=== PATIENT | male | born 1985 | race Two or more races ===

== ENCOUNTER 2024-06-18 19:44 | Emergency (ER) | payer OTHER, SELFPAY ==
[2024-06-18 19:47] VITALS: BP 114/77; PULSE 60; RESP 17; TEMP 36.4; O2SAT 98; BMI 28.4
--- NOTE | 2024-06-18 20:05 | ED_ITS ---
HPI - General Adult General Chief complaint: Ear Problems Stated complaint: L ear pain/ headache Time Seen by Provider: 06/18/24 22:31 Source: patient Mode of arrival: ambulatory Limitations: no limitations History of Present Illness ED Provider: JOHN HPI narrative: 38 yo male with no sig PMH here with one day of L ear pain and feeling dizzy. He notes it hurts on that side of the head. No recent risk factors for infection of ear. He has decreased hearing out of L ear. 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 Onset (ago): day(s) (1) Location: head Radiation: non-radiation Severity: moderate Quality: aching Pain Consistency: constant Relieving factors: medication Exacerbating factors: other (touching ear) Associated symptoms: headaches Treatments prior to arrival: other (tylenol) Related Data Previous Rx's ?Medication ?Instructions ?Recorded amoxicillin 875 mg-potassium 1 tab PO BID #14 tabs 06/19/24 clavulanate 125 mg tablet Allergies Allergy/AdvReac Type Severity Reaction Status Date / Time No Known Allergies Allergy Verified 06/18/24 19:50 Review of Systems Review of Systems: Constitutional : No Fever, No Chills, No Fatigue ENT/Mouth : pos sore throat, No Rhinorrhea, pos ear pain Eyes: No Eye Pain, No Swelling, No Redness Cardiovascular : No Chest Pain, No SOB, No Dyspnea on Exertion Respiratory : No Cough, No Sputum Gastrointestinal : No Nausea, No Vomiting, No Diarrhea, No abdominal Pain Genitourinary : No Dysuria, No Urinary Frequency, No Hematuria, Musculoskeletal : No joint pain, No Myalgias, No Joint Swelling Skin : No Skin Lesions, No rash Neuro : No Weakness, No Numbness, No Dizziness, positive Headache Psych : No Anxiety/Panic, No Depression Heme/Lymph: No Bruising, No Bleeding,No Lymphadenopathy Endocrine : No Polyuria, No Polydipsia All other systems reviewed and are negative [facility] Past Medical History Attestation statement: The following information was validated with the patient. Medical History No pertinent past medical history Social History Social History (Updated 06/18/24 @ 23:06 by Deann Andersen DO) Patient Tobacco Use Status: Never used Tobacco Advance Directives: No Advance Directives Information Provided: No Do you have a plan to hurt others: No Plan Physical Exam ED Vital Signs: Vital Signs - 24 hr 06/18/24 19:47 06/18/24 22:32 Temperature 97.5 F 97.8 F Pulse Rate 60 64 Respiratory Rate 17 18 Blood Pressure 114/77 118/76 Pulse Oximetry 98 98 Oxygen Delivery Method Room Air Room Air BMI result Body Mass Index 28.4 Appearance: Alert. Oriented X3. No acute distress. Eyes: Pupils equal, round and reactive to light. ENT: Pharynx mild erythema, no mastoid ttp, no exudates in the throat, L TM covered in hard wax, no lymphadenopathy in the neck or preuricular area felt Neck: Normal inspection. NeckL supple. CVS: Normal heart rate and rhythm. Pulses normal. Respiratory: No respiratory distress. Breath sounds normal. Abdomen: Soft and nontender. Skin: Skin warm and dry. Normal skin color. Normal skin turgor. Extremities: No lower extremity edema. No calf ttp Neuro: Oriented X 3. No motor deficit. No sensory deficit. Course Course Course Narrative: RME performed by Ashley Pardo PA-C. Patient is a 38 year old assigned male at presenting to the emergency department with left ear pain. Detailed physical exam and review of systems are deferred to the retread operator. Patient placed back in the waiting room pending room availability. Reevaluation(s) Reevaluation #1: after irrigation has AOM of L ear, R TM and ear canal normal Medications Administered Discontinued Medications Generic Name Dose Route Start Last Admin Trade Name Freq PRN Reason Stop Dose Admin Docusate Sodium 100 mg 06/18/24 22:41 06/18/24 23:04 Docusate Sodium 100 Mg/10 Ml Liquid PO 06/18/24 22:42 100 mg ONCE ONE Administration Docusate Sodium 100 mg 06/18/24 23:13 06/18/24 23:17 Docusate Sodium 100 Mg/10 Ml Liquid PO 06/18/24 23:14 100 mg ONCE ONE Administration Procedures Ear Wax Removal Left Ear: Cerumenolytic Used: Colace Results: Re-examined: cerumen removed completely TM Examination: other (has AOM but normal canal and no perforation - effusion, erythema, bulging) Ear Canal Exam: atraumatic Patient Tolerated Procedure: well and no complications Complications: no problems Technique: ear canal irrigated Additional Comments: removed after one 10cc warm water irrigation Medical Decision Making Medical Decision Making MDM Narrative: 38 yo male with no sig PMH here with c/o L ear pain no signs of mastoid ttp no lymphadenopathy the L ear has TM impaction will place colace and irrigate. No signs of deeper space infection. Suspect wax impaction, AOM. Doubt mastoiditis. He is NV intact Differential Diagnosis Differential Diagnoses: The differential diagnosis associated with the presentation includes wax impaction, AOM. Admission/Observation Consideration of admission/observation: Escalation of care including admission/observation considered not toxic doubt deeper infection stable for DC Independent Historian Clinical information obtained from an independent historian. History obtained from or confirmed by: Spouse Prescription Management I considered prescription management with: Antibiotic Discharge Plan Discharge Clinical Impression: Otitis media Qualifiers: Otitis media type: suppurative Chronicity: acute Laterality: left Recurrence: non-recurrent Spontaneous tympanic membrane rupture: without spontaneous rupture Qualified Code(s): H66.002 - Acute suppurative otitis media without spontaneous rupture of ear drum, left ear Cerumen impaction Qualifiers: Laterality: left Qualified Code(s): H61.22 - Impacted cerumen, left ear Patient Disposition: Home, Self-Care Instructions: Ear Infection (ED) Additional Instructions: return for any fevers, severe pain, swelling, no sig improvement in 24 to 48 hours or any other concerns. On amoxicillin-clavulanate, softer bowel movements are to be expected. Call your provider if you move your bowels more than 4 times a day, your bowel movements are almost all liquid, or you get a rash.? Prescriptions: New amoxicillin-pot clavulanate 875-125 mg tablet 1 tab PO BID Qty: 14 0RF Print Language: Yakut
[2024-06-18 22:32] VITALS: BP 118/76; PULSE 64; RESP 18; TEMP 36.6; O2SAT 98
[2024-06-18] MEDS: Docusate Sodium 100 MG/10 ML LIQUID PO ×2 (23:04→23:17)
[2024-06-19] MEDS: Ibuprofen 600 MG TABLET PO (00:18)
[2024-06-19] MEDS: Amoxicillin/Potassium Clav 875 MG TABLET PO (00:18)
--- NOTE | 2024-06-19 00:23 | PC.NURSE ---
Took over care at 23:00 from Virgen Barry, medicated per sep, reviewed discharge instructions with pt. pt verbalized understanding, no sign of distress upon discharge.
[2024-06-19 00:25] VITALS: BP 132/81; PULSE 64; RESP 16; TEMP 36.3; O2SAT 96
== END 2024-06-19 00:26 | disposition home or self-care (01) ==
PROVIDERS: Emergency Provider Emergency Medicine
DX: H66.002 Acute suppurative otitis media without spontaneous rupture of ear drum, left ear (principal); H61.22 Impacted cerumen, left ear; H92.02 Otalgia, left ear; R42 Dizziness and giddiness
CPT/HCPCS: 99283; 99284

== ENCOUNTER 2025-04-16 15:14 | Outpatient (AMB) | payer OTHER, SELFPAY ==
--- NOTE | 2025-04-16 15:25 | A.OFFPC_ITS ---
Vital Signs 04/16/25 15:26 Height 5 ft 6 in Weight 165 lb 2 oz BMI 26.6 BP 90/60 Blood Pressure Location Lt brachial Position Sitting Respiration 18 Pulse 64 Pulse Source Pulse Oximeter Temp 96.4 F L Temp Source Temporal Artery Scan Pulse Oximetry (%) 95 Oxygen Delivery Method Room Air Intake Visit Reasons: establish care Billing Coordinator Required: No Accompanied by: Self / Same As Patient Allergies No Known Allergies Allergy (Verified 04/16/25 15:47) Medication List - Last Reconciled 04/16/25 by Marissa Hoffman MD No Known Home Meds Tobacco use date assessed: 04/16/25 Dental Screening Dental Screen Date: 04/16/25 Did you have a dental visit in the last 12 months?: Yes Did you have a dental problem in the last 6 months where you did not have access to dental care?: No Was dental information given to patient?: Patient has dentist HPI HPI Comments History of Present Illness Details The patient is a 39-year-old male presenting with concerns related to pulmonary embolism after covid, sleep apnea, and mental health issues. The patient has a history of pulmonary embolism, for which he was treated with blood thinners. He completed the treatment and is no longer on anticoagulation therapy. The patient reports having sleep apnea and uses a CPAP machine. However, he mentioned that the mask is broken, which affects his usage of the machine. The patient also experiences mild depression and anxiety. He describes episodes of feeling overwhelmed, particularly in the afternoon, which sometimes require him to take a short nap. He has a history of smoking but currently does not smoke and only drinks alcohol on special occasions. 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 1. Little interest or pleasure in doing things: several days 2. Feeling down, depressed, or hopeless: several days 3. Trouble falling or staying asleep, or sleeping too much: several days 4. Feeling tired or having little energy: more than half the days 5. Poor appetite or overeating: not at all 6. Feeling bad about yourself - or that you are a failure or have let yourself or your family down: more than half the days 7. Trouble concentrating on things, such as reading the newspaper or watching television: more than half the days 8. Moving or speaking so slowly that other people could have noticed. Or the opposite - being so fidgety or restless that you have been moving around a lot more than usual: several days 9. Thoughts that you would be better off or of hurting yourself in some way: not at all Total score: 10 Depression Screening Interpretation: Positive Depression Screening Follow-up: Existing condition and Follow-up Visit Requested Depression Screening Done: Yes [id number] - PHQ-9 Billing: Yes Source: Developed by Drs. Deshaun Epstein, Clarisa Cabral, Edmundo Bernal and colleagues, with an educational rosi from [employer]. Thrive Questionnaire Date Thrive assessed: 04/16/25 I am a: Patient What is your living situation today?: I have a steady place to live Within the past 12 months, did the food you bought not last and you didn't have the money to get more?: Never true Within the past 12 months, did you worry whether your food would run out before you got money to buy more?: Never true Do you have trouble paying for medicines?: No Do you have trouble getting transportation to medical appointments?: No Do you have trouble paying your heating and electricity bill?: No Do you have trouble taking care of your child, family member or friend?: No Do you have trouble with day-to-day activities such as bathing, preparing meals, shopping, managing finances, etc.?: No Are you currently unemployed and looking for a job?: No Are you interested in more education?: Yes Please select the resources that you would like help with: Food and Paying for medicine Currently or been in a relationship where the following occur: No concerns reported THRIVE Score: 0 AUDIT C Alcohol Use Questionnaire (AUDIT-C) 1. How often do you have a drink containing alcohol?: Monthly or less 2. How many drinks containing alcohol do you have on a typical day when you are drinking?: 3 or 4 3. How often do you have six or more drinks on one occasion?: Less than monthly Total Score: 3 Score Reviewed/Action Taken: No VIRGINIA-7 AMB Questionnaire VIRGINIA-7 Date VIRGINIA - 7 assessed: 04/16/25 Feeling nervous, anxious, or on edge: 1 = Several days Not being able to stop or control worryin = Several days Worrying too much about different things: 1 = Several days Trouble relaxin = Several days Being so restless that it is hard to sit still: 1 = Several days Becoming easily annoyed or irritable: 1 = Several days Feeling afraid as if something awful might happen: 0 = Not at all Total VIRGINIA-7 score (0-4 normal; 5-9 mild; 10-14 moderate; 15-21 severe): 6 Source: Developed by Drs. Deshaun Epstein, Clarisa Cabral, Edmundo Bernal and colleagues, with an educational rosi from [employer]. VIRGINIA-7 Assessment Billing VIRGINIA-7 Assessment Tool: VIRGINIA-7 Assessment 57479 Review of Systems Const All systems reviewed & are unremarkable except as noted in HPI and below Card Denies chest pain at rest, Denies chest pain with activity, Denies edema, Denies irregular heart rhythm, Denies claudication, Denies dyspnea, Denies dyspnea on exertion, Denies orthopnea, Denies paroxysmal nocturnal dyspnea and Denies slow heart rate Resp Denies cough, Denies dyspnea and Denies dyspnea on exertion Physical exam (Primary Care) Vital Signs: Last Vital Signs Temp 96.4 F L 04/16/25 15:26 Pulse 64 04/16/25 15:26 Resp 18 04/16/25 15:26 BP 90/60 04/16/25 15:26 Pulse Ox 95 04/16/25 15:26 Oxygen Delivery Method Room Air 04/16/25 15:26 BMI result Body Mass Index 26.6 Tobacco/Smoking Status: Tobacco use Status Tobacco use date assessed 04/16/25 04/16/25 15:31 Patient Tobacco Use Status Former Tobacco user 04/16/25 15:58 e-Cigarette/Vaping Use Never Used 04/16/25 15:58 PHQ-9: PHQ-9 Score PHQ-9: Total score 10 04/16/25 15:52 Depression Screening Interpretation: Positive Depression Screening Follow-up: Existing condition and Follow-up Visit Requested Thrive Assessment: Date of Thrive Assessment Date Thrive assessed 04/16/25 04/16/25 15:31 Currently or been in a relationship where the following occur: No concerns reported Resp Effort & Inspection: normal respiratory effort Auscultation: clear to auscultation bilaterally Cardio Jugular venous distension: no JVD Rate: regular rate Rhythm: regular rhythm Heart sounds: S1 normal heart sound present and S2 normal heart sound present Extrem General: Yes full ROM Coding Level of Care Code New Pt Level 4 (61040) Diagnoses Mild major depression F32.0 V[place]IA (generalized anxiety disorder) F41.1 Vasectomy evaluation Z30.09 Scoliosis M41.9 LANDON (obstructive sleep apnea) G47.33 Additional Codes VIRGINIA-7 Assessment Billing - V[place]GINIA-7 Assessment Tool: VIRGINIA-7 Assessment 25012 ([id number]) PHQ-9 - 44488 - PHQ-9 Billing: Yes ([id number]) Time Spent (min) 23 Assessment & Plan Assessment & Plan (1) Mild major depression: Code(s): F32.0 - Major depressive disorder, single episode, mild Category: Medical (2) V[place]IA (generalized anxiety disorder): Code(s): F41.1 - Generalized anxiety disorder Category: Medical (3) Vasectomy evaluation: Code(s): Z30.09 - Encounter for other general counseling and advice on contraception Category: Medical (4) Scoliosis: Code(s): M41.9 - Scoliosis, unspecified Category: Medical (5) LANDON (obstructive sleep apnea): Code(s): G47.33 - Obstructive sleep apnea (adult) (pediatric) Category: Medical Plan Plan Patient was informed and verbally consented to the use of an ambient scribe for clinic note documentation during this visit. 1. Sleep Apnea The patient uses a CPAP machine for sleep apnea, but the mask is currently broken, affecting its use. Replacement of the mask is recommended to ensure effective treatment. 2. Depression And Anxiety The patient experiences mild depression and anxiety, with episodes of feeling overwhelmed in the afternoon. Consideration for mental health support or coun seling may be beneficial. Orders: Orders Complete Blood Count Auto Diff Today J45.909 - Unspecified asthma, uncomplicated Comprehensive [place]. Panel Fast Today J45.909 - Unspecified asthma, uncomplicated Lipid Panel Today E78.5 - Hyperlipidemia, unspecified Referrals Urology Referral Z30.09 - Encounter for other general counseling and advice on contraception Sleep Medicine Referral G47.33 - Obstructive sleep apnea (adult) (pediatric) Pain Management Referral M41.9 - Scoliosis, unspecified
[2025-04-16 15:26] VITALS: BP 90/60; PULSE 64; RESP 18; TEMP 35.8; O2SAT 95; BMI 26.6
--- OUTSIDE RECORDS SUMMARY | 2025-04-16 18:11 | XMS_ITS | Clinical Summary ---
Author Organization [facility] [address] [place] [address] [place] [id number] Phone Care Team Providers Care Coagulant Dipper Name Role Phone Trent Hathaway MD Primary Care Provider [phone] Allergies No known active allergies Active Problems Problem Noted Date Diagnosed Date Severe obesity with body mas s index (BMI) of 35.0 to 39.9 with comorbidity (CMS/[facility] V24, CMS/[facility] V28) 11/19/2021 Obesity (BMI 30-39.9) 08/15/2021 Obstructive sleep apnea 12/26/2020 Overview (07/22/2024): [facility] Home Sleep Apnea Test: Date 12/15/2020; Wt 203#; BMI 33; OLIMPIA (AHI) 55, AI 55 HI not reported; 376 OAs; 2 Rory; 1 MA; hypopneas and oximetry not reported. Obstructive sleep apnea - severe with mostly obstructive apneas. No oximetry reading. Home study 2020. COVID-19 09/11/2020 Overview (07/22/2024): Last Assessment & Plan: Diagnosed 09/06. Per CDC criteria may return to work in 10 days as long as symptoms have significantly improved, and he is afebrile x72 hours. I think it is reasonable to give him the full 2 weeks especially since he also has back pain from either the fall or the PE. He does still have anosmia and dysgeusia. Off work until the . Multiple subsegmental pulmon syed emboli without acute cor pulmonale (CMS/HCC V24, CMS/[facility] V28) 09/11/2020 Overview (07/22/2024): Last Assessment & Plan: Eliquis 5 mg twice daily x3 to 6 months. Will refer to hematology for possible hypercoagulable work-up, though COVID is known to cause clotting Right-sided thoracic back pain 09/11/2020 Overview (07/22/2024): Last Assessment & Plan: Agree with Tylenol, avoid NSAIDs due to anticoagulation Scoliosis of thoracic spine 11/01/2017 Immunizations Name Administration Dates Next Due Tdap Tetanus diptheria acell ular pertussis (Boostrix; Adacel) 7yo and older 08/23/2017 Surgical History Surgery Date Site/Laterality Comments OTHER SURGICAL HISTORY PROCEDURE: DENIES PREVIOUS SURGERY Medical History Medical History Date Comments Scoliosis of thoracic spine 11/01/2017 DX:S coliosis of thoracic spine Family History Medical History Relation Name Comments Hypertension Mother Sleep apnea Mother Relation Name Status Comments Father Alive Mother Alive Social History Tobacco Use Types Packs/Day Years Used Date Smoking Tobacco: Former Smokeless Tobacco: Former Alcohol Use Standard Drinks/Week Comments No 0 (1 standard drink = 0.6 oz pur e alcohol) Sex and Gender Information Value Date Recorded Sex Assigned at Not on file Legal Sex Male 12:18 AM EST Gender Identity Not on file Sexual Orientation Not on file Obstetrics History Last Filed Vital Signs Vital Sign Reading Time Taken Comments Blood Pressure 122/76 11/19/2021 2:09 PM EDT Pulse 86 11/19/2021 2:09 PM EDT Temperature - - Respiratory Rate - - Oxygen Saturation - - Inhaled Oxygen Concentration - - Weight 98.1 kg (216 lb 4.8 oz) 11/19/2021 2:09 P M EDT Height 165.1 cm (5' 5 ) 11/19/2021 2:09 PM EDT Body Mass Index 35.99 11/19/2021 2:09 PM EDT Plan of Treatment Health Maintenance Due Date Last Done Comments Hepatitis B Vaccines (1 of 3 - 19+ 3-dose series) 11/09/2006 Social Influencers of Health Screening 06/27/2022 Cholesterol Screening (Lipid Panel) 11/02/2022 11/02/2017 Depression Screening 07/25/2024 COVID-19 Vaccine ( - 2023-2 5 season) 2025 Influenza Vaccine (#1) 2025 DTaP,Tdap,and Td Vaccines (2 - Td or Tdap) 08/23/2027 08/23/2017 HIV Screening Completed 08/23/2017 Hepatitis C Screening Completed 08/23/2017 HIB Vaccines Aged Out No longer eligi ble based on patient's age to complete this topic HPV Vaccines Aged Out No longer eligi ble based on patient's age to complete this topic Hepatitis A Vaccines Aged Out No long er eligible based on patient's age to complete this topic IPV Vaccines Aged Out No longer eligi ble based on patient's age to complete this topic MMR Vaccines Aged Out No longer eligi ble based on patient's age to complete this topic Meningococcal ACWY Vaccine Aged Out N o longer eligible based on patient's age to complete this topic Meningococcal B Vaccine Aged Out No l onger eligible based on patient's age to complete this topic Pneumococcal Vaccine: Pediat rics (0 to 5 Years) and At-Risk Patients (6 to 49 Years) Aged Out No longer eligi ble based on patient's age to complete this topic RSV Immunization Patients Un travon 20 months Aged Out No longer eligible b ased on patient's age to complete this topic Varicella Vaccines Aged Out No longer eligible based on patient's age to complete this topic Procedures Procedure Name Priority Date/Time Associated Diagnosis Comments LIPID PANEL Routine 11/02/2017 HEPATITIS C SCREENING Routine 08/23/2017 HIV SCREENING Routine 08/23/2017 from Last 3 Months or Most Recently Relevant to Health Maintenance Results * (ABNORMAL) Lipid panel (11/02/2017) Pathologist [facility] LDL/HDL Ratio 4 0 - 4 Triglycerides 101 0 - 150 mg/dL Cholesterol 184 0 - 200 mg/dL HDL 47 >=40 mg/dL LDL Cholesterol 117(A) 0 - 100 mg/dL Blood Venous blood specimen / Unknown us Historical Provider LAB BLOOD ORDERABLES Ava l Result * HIV Screening (08/23/2017) HIV Screening Abstracted us Historical Provider HEALTH MAINTENANCE Final Result * Hepatitis C Screening (08/23/2017) Hepatitis C Screening Abstracted us Historical Provider HEALTH MAINTENANCE Final Result from Last 3 Months or Most Recently Relevant to Health Maintenance Care Teams Coagulant Dipper Relationship Specialty Start Date End Date Trent Hathaway MD [address] [place] [phone] PCP - General Internal Medicine 03/18/21
--- OUTSIDE RECORDS SUMMARY | 2025-04-16 18:11 | XMS_ITS | Clinical Summary ---
Author Organization [facility] Address [address] [place] [address] Care Team Providers Care Enterprise Solutions Architect Name Role Phone Trent Hathaway MD Primary Care Provider [phone] Allergies No known active allergies Medications No known medications Active Problems Problem Noted Date Diagnosed Date Exertional dyspnea 10/03/2021 Class 1 obesity without serious comorbidity in a dult 10/28/2020 Multiple subsegmental pulmon syed emboli without acute cor pulmonale 09/11/2020 Overview: Right-sided thoracic back pain 09/11/2020 Scoliosis of thoracic spine 11/01/2017 Social History Tobacco Use Types Packs/Day Years Used Date Smoking Tobacco: Never Smokeless Tobacco: Never Alcohol Use Standard Drinks/Week Comments Yes 0 (1 standard drink = 0.6 oz pur e alcohol) Sex and Gender Information Value Date Recorded Sex Assigned at Male 10/28/2020 2:23 PM EDT Gender Identity Not on file Sexual Orientation Not on file Last Filed Vital Signs Vital Sign Reading Time Taken Comments Blood Pressure 140/71 09/24/2021 12:57 PM EST Pulse 69 09/24/2021 12:57 PM EST Temperature 36.4 C (97.5 F) 09/24/2021 12:57 PM EST Respiratory Rate - - Oxygen Saturation 99% 09/24/2021 12: 57 PM EST Inhaled Oxygen Concentration - - Weight 98.3 kg (216 lb 12.8 oz) 022 12:57 PM EST Height 167.6 cm (5' 6 ) 09/24/2021 12:5 7 PM EST Body Mass Index 34.99 09/24/2021 12:57 PM EST Plan of Treatment Health Maintenance Due Date Last Done Comments Hepatitis B Vaccines (1 of 3 - 3-dose series) 1987 Hepatitis C Screening 1987 COVID-19 Vaccine (#1) 05/11/1988 Depression Screening 1999 BMI Counseling 11/09/2005 Preventative Health Evaluation 11/09/2005 Influenza Vaccine (#1) 2025 DTap / Tdap / Td (2 - Td or Tdap) 08/23/2027 018 Pneumococcal Vaccine Aged Out No long er eligible based on patient's age to complete this topic RSV Ped < 20 months Aged Out No longe r eligible based on patient's age to complete this topic Care Teams Enterprise Solutions Architect Relationship Specialty Start Date End Date Trent Hathaway MD PCP - General Internal Medicine 09/09/21
== END 2025-04-16 16:04 | disposition home or self-care (01) ==
LOC: HO.HMCH 15:15
PROVIDERS: PCP Internal Medicine; Visit Provider Internal Medicine
DX: F32.0 Major depressive disorder, single episode, mild (principal); F41.1 Generalized anxiety disorder; Z30.09 Encounter for other general counseling and advice on contraception; M41.9 Scoliosis, unspecified; G47.33 Obstructive sleep apnea (adult) (pediatric)

== ENCOUNTER → 2025-04-16 15:14 | Outpatient (BNVA) | payer OTHER, SELFPAY | PROVIDERS: PCP Internal Medicine; Visit Provider Internal Medicine | DX: F32.0 Major depressive disorder, single episode, mild (principal); F41.1 Generalized anxiety disorder; M41.9 Scoliosis, unspecified; G47.33 Obstructive sleep apnea (adult) (pediatric); Z87.891 Personal history of nicotine dependence; Z86.711 Personal history of pulmonary embolism; Z99.89 Dependence on other enabling machines and devices | CPT/HCPCS: 96127; 99202 ==

== ENCOUNTER 2025-05-02 11:09 | Outpatient (REF) | payer OTHER, SELFPAY ==
[2025-05-02 12:41] LABS: HIV Num 1 0.05 S/CO (0.00-0.99); Syphilis Screen Nonreactive (Nonreactive)
[2025-05-02 13:25] LABS: CT PCR Urine NOT DETECTED (Not Detect.); NG PCR Urine NOT DETECTED (Not Detect.)
== END 2025-05-02 11:10 | disposition home or self-care (01) ==
LOC: HO.LAB 11:09
PROVIDERS: PCP Internal Medicine; Visit Provider Internal Medicine
DX: Z20.2 Contact with and (suspected) exposure to infections with a predominantly sexual mode of transmission (principal); Z11.4 Encounter for screening for human immunodeficiency virus [HIV]
CPT/HCPCS: 86780; 87389; 87491; 87591

== ENCOUNTER 2025-06-04 09:03 | Outpatient (AMB) | payer OTHER, SELFPAY ==
--- OUTSIDE RECORDS SUMMARY | 2025-06-04 09:43 | XMS_ITS | Clinical Summary ---
Author Organization [facility] [address] [place] [address] [place] [id number] Phone Care Team Providers Care Qualitative Executive Researcher Name Role Phone Tretn Hathaway MD Primary Care Provider [phone] Allergies No known active allergies Active Problems Problem Noted Date Diagnosed Date Severe obesity with body mas s index (BMI) of 35.0 to 39.9 with comorbidity (CMS/[facility] V24, CMS/[facility] V28) 11/19/2021 Obesity (BMI 30-39.9) 08/15/2021 Obstructive sleep apnea 12/26/2020 Overview (07/22/2024): [facility] Home Sleep Apnea Test: Date 12/15/2020; [...] emboli without acute cor pulmonale (CMS/HCC V24, CMS/[facility] V28) 09/11/2020 Overview (07/22/2024): Last Assessment & Plan: Eliquis 5 mg twice daily x3 to 6 months. Will refer to hematology for possible hypercoagulable work-up, though COVID is known to cause clotting Right-sided thoracic back pain 09/11/2020 Overview (07/22/2024): Last Assessment & Plan: Agree with Tylenol, avoid NSAIDs due to anticoagulation Scoliosis of thoracic spine 11/01/2017 Immunizations Immunization Administration Dates Next Due Tdap Tetanus diptheria [...] of 3 - 19+ 3-dose series) 11/09/2006 HPV Vaccines (1 - 3-dose SCD M series) 11/09/2014 Social Influencers of Health Screening 06/27/2022 Cholesterol Screening (Lipid Panel) 11/02/2022 11/02/2017 Depression Screening 07/25/2024 COVID-19 Vaccine (1 - 2024-2 6 season) 2025 Influenza Vaccine (#1) 2025 DTaP,Tdap,and Td Vaccines (2 - Td or Tdap) 08/23/2027 08/23/2017 RSV Immunization Adult Patie nts (1 - 1-dose 75+ series) 11/09/2062 HIV Screening Completed 08/23/2017 Hepatitis C Screening [...] Maintenance Results * (ABNORMAL) Lipid panel (11/02/2017) LDL/HDL Ratio 4 0 - 4 Triglycerides [...] Recently Relevant to Health Maintenance Care Teams Qualitative Executive Researcher Relationship Specialty Start Date End Date Trent Hathaway MD [address] [place] [id number] PCP - General Internal Medicine 03/18/21
[2025-06-04 10:17] VITALS: BP 112/78; PULSE 58; O2SAT 96; BMI 25.8
--- NOTE | 2025-06-04 10:17 | MHC.OFFVIS ---
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 The patient reports having sleep apnea and uses a CPAP machine. However, he mentioned that the mask is broken, which affects his usage of the machine. Not using machine. Goes to bed at 10-11pm. Wakes up at 5am. Sleeps through the night. Naps 10-15min nap. Headaches. Daytime fatigue. Last sleep study either 2020 or 2021. Manager Oracle Database Required: Yes Manager Oracle Database Services: Manager Oracle Database Present Manager Oracle Database Name: Magy [id number] Information Interpreted: non-clinical & clinical Accompanied by: Self / Same As Patient Allergies No Known Allergies Allergy (Verified 06/04/25 10:21) HPI Comments Details: 39 year old male presents for an evaluation of LANDON. PMH In 2020 pulmonary embolism due to Covid and was started on a blood thinners. For 3 years now he has difficulty falling asleep, he goes to bed at 11pm, snores loudly, gasp for air, then tosses and turns all night long. 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 He can sleep through the night, is chronically fatigued and has no energy in the mornings. He has morning headaches, which can last for hours with dizziness and vertigo, he takes 30 min naps daily at 3pm and hydrates this usually improves the fatigue. He is slow to wake up in the mornings, has to be mindful to not limon or else will have rebound headaches. He has acid reflux managed with diet and lifestyle. He has been eating a well balanced diet, and exercises daily. He has RLS symptoms of numbness, tingling, pins, and needles bilaterally in lower extremities, it does not keep him up at night. Memory is cloudy he forgets many tasks, appts and if asked to complete errands, he will forget information, has difficulty focusing, loses concentration easily. Denies difficulty recalling words, dates, names and or getting lost while driving. Mood is low, he has depression and feels anxious easily. Denies smoking, MJ use, edibles and alcohol. PFSH Medical History Pulmonary embolism Asthma Sleep apnea Scoliosis No pertinent past medical history Family History Mother Hypertension Social History Household Members: Family Housing: Apartment Alcohol intake: current Alcohol intake frequency: holidays/special occasions only Patient Tobacco Use Status: Former Tobacco user e-Cigarette/Vaping Use: Never Used Current occupational status: employed Current occupation: BUTTON T[employer]TER Cognitive needs: No Hearing needs: No Vision needs: Yes Physical Exam Vital Signs: Last Vital Signs Pulse 58 06/04/25 10:17 BP 112/78 06/04/25 10:17 Pulse Ox 96 06/04/25 10:17 Oxygen Delivery Method Room Air 06/04/25 10:17 BMI result Body Mass Index 25.8 Const General: cooperative, comfortable and no acute distress Nutritional Appearance: average body habitus Orientation/consciousness: patient oriented x3 HEENT Face and sinus: Yes face symmetric Teeth and gingiva: other (mallampti score is 3) Eyes Pupils: Equal, round and reactive pupils present Neck Neck: Yes full ROM Resp Effort & Inspection: normal respiratory effort and able to speak in complete sentences Neuro General: patient oriented x3 and moves all extremities Cranial nerves: Yes Equal, round and reactive pupils present, Yes Normal accommodation reflex present, Yes Normal facial strength present, Yes Midline tongue present, Yes Ability to bilaterally rotate head present and Yes Ability to bilaterally elevate shoulders present Cognition (Neuro): normal cognition Gait exam (Neuro): Normal gait present Motor exam (neuro): 5/5 motor strength present throughout and Normal motor muscle tone present throughout Psych Appearance: grossly normal Affect: normal affect Thought process: Normal thought process present Results Reviewed Results Reviewed: PCP note 03/2025 [place] Assessment & Plan Assessment & Plan (1) Excessive daytime sleepiness: Code(s): G47.19 - Other hypersomnia Category: Medical (2) Mild major depression: Code(s): F32.0 - Major depressive disorder, single episode, mild Category: Medical (3) [place] (generalized anxiety disorder): Code(s): F41.1 - Generalized anxiety disorder Category: Medical (4) Asthma: Code(s): J45.909 - Unspecified asthma, uncomplicated Category: Medical Qualifiers: Asthma complication type: uncomplicated Asthma persistence: unspecified Asthma severity: unspecified severity Qualified Code(s): J45.909 - Unspecified asthma, uncomplicated (5) Chronic fatigue: Code(s): R53.82 - Chronic fatigue, unspecified Category: Medical (6) History of difficulty sleeping: Code(s): Z72.821 - Inadequate sleep hygiene Category: Medical Plan HST to r/o landon - he says he had a cpap machine years ago, but unable to use it due to broken mask. Anxiety depression, declines meds, natural remedies such as Ashwaganda, adaptogens, Noortropics, l-theanine, rhodiola, etc. Magnesium Glycinate /oxide or citrate 400mg po daily at bedtime and melatonin 5mg po daily to induce sleep. Asthma managed with inhaler per pcp. Labs to r/o landon. F/u in 3 months Orders: Orders Complete Blood Count no Diff 06/04/25 R53.82 - Chronic fatigue, unspecified Comprehensive Met. Panel 06/04/25 R53.82 - Chronic fatigue, unspecified Ferritin 06/04/25 R53.82 - Chronic fatigue, unspecified Hemoglobin A1c 06/04/25 R53.82 - Chronic fatigue, unspecified IRON PROFILE 06/04/25 G47.9 - Sleep disorder, unspecified, R53.82 - Chronic fatigue, unspecified, R53.83 - Other fatigue RT home sleep study 06/04/25 G47.19 - Other hypersomnia Methylmalonic Acid 06/04/25 G47.9 - Sleep disorder, unspecified, R53.82 - Chronic fatigue, unspecified, R53.83 - Other fatigue Homocysteine 06/04/25 G47.9 - Sleep disorder, unspecified, R53.82 - Chronic fatigue, unspecified, R53.83 - Other fatigue Vitamin D 25-OH Total 06/04/25 R53.82 - Chronic fatigue, unspecified Vitamin B12 and Folate 06/04/25 R53.82 - Chronic fatigue, unspecified TSH reflex Free T4 06/04/25 R53.82 - Chronic fatigue, unspecified Vitamin B6 06/04/25 R53.82 - Chronic fatigue, unspecified Medications: New melatonin 5 mg PO DAILY 90 caps 0RF difficulty falling asleep 3 months MDD 5mg Z72.821 - Inadequate sleep hygiene Patient Instructions: Please complete the following fasting labs to rule out deficiencies. CBC/CMP/ B12/ Vit D/ TSH/ Homocysteine and MMA/ Ferritin. Sleep Hygiene provided: set a scheduled bedtime and wake time to help regulate the circadian rhythm and balance the release of pituitary hormones. Sleep in a dark room, temperatures below 68 degrees, and no devices n bed. Limit caffeinated products 6 hours prior to bed, and limit fluids 2-4 hours prior to bed. Gentle night yoga, diffusing essential oils, and playing soft music can be relaxing. Coding Level of Care Code New Pt Level 4 (61748) Diagnoses Excessive daytime sleepiness G47.19 Mild major depression F32.0 [place] (generalized anxiety disorder) F41.1 Uncomplicated asthma, unspecified asthma severity, unspecified whether persistent J45.909 Asthma complication type: uncomplicated Asthma persistence: unspecified Asthma severity: unspecified severity Chronic fatigue R53.82 History of difficulty sleeping Z72.821
== END 2025-06-04 11:18 | disposition home or self-care (01) ==
LOC: HO.HSMS 09:04
PROVIDERS: PCP Internal Medicine; Visit Provider Physician Assistant Medical
DX: G47.19 Other hypersomnia (principal); F32.0 Major depressive disorder, single episode, mild; F41.1 Generalized anxiety disorder; J45.909 Unspecified asthma, uncomplicated; R53.82 Chronic fatigue, unspecified; Z72.821 Inadequate sleep hygiene
CPT/HCPCS: 99204

== ENCOUNTER → 2025-06-04 09:03 | Outpatient (BNVA) | payer OTHER, SELFPAY | PROVIDERS: PCP Internal Medicine; Visit Provider Physician Assistant Medical | DX: F32.0 Major depressive disorder, single episode, mild (principal); G47.19 Other hypersomnia; F41.1 Generalized anxiety disorder; J45.909 Unspecified asthma, uncomplicated; R53.82 Chronic fatigue, unspecified; Z72.821 Inadequate sleep hygiene | CPT/HCPCS: 99202 ==

== ENCOUNTER 2025-07-08 09:53 | Outpatient (AMB) | payer OTHER, SELFPAY ==
--- NOTE | 2025-07-08 10:01 | MHC.OFFVIS ---
Intake Visit Reasons: vasectomy consult Intake Note: Reason for Visit: Vasectomy Consult Urology Medication: None Blood Thinners: None Imaging: None Labs: None Current Children: 3 Not Expecting Orthotist Or Prosthetist Required: Yes Orthotist Or Prosthetist Language: Combat Systems Operator Services: Orthotist Or Prosthetist Present Orthotist Or Prosthetist Name: Omkar [id number] Accompanied by: Self / Same As Patient Allergies No Known Allergies Allergy (Verified 07/08/25 10:16) Medication List - Last Reconciled 07/08/25 by DIDI Rey melatonin 5 mg PO DAILY 3 months MDD 5mg HPI Comments Details: Brian is a very pleasant 39-year-old Tajik-speaking male patient of Dr. Puentes. He has a PMH of pulmonary embolism, asthma, sleep apnea, and scoliosis. He has a He presents to the office today for - vasectomy evaluation Vasectomy evaluation The patient presents for vasectomy consultation.? He is currently single however in relationship He has fathered -3 children, with 2 partners The youngest child is - 3 years old His partner is aware and permissive for a vasectomy Current form of control is condoms and rhythm Current employment is [employer] The vasectomy may be complicated due to a history of no complicating issues. Patient education has been provided via AUA video, via printed information, risks of failure, recovery time, bruising and potential pain syndrome have been stressed Discussion today focused on the presence of vasectomy and the risks, benefits and alternatives that are available. Vasectomy as intended as a permanent form of control. Printed information and literature was provided to the patient. Overall there is a one in 2500 failure rate. This can occur at any time after vasectomy. Risks were discussed highlighting hematoma, spermatocele, epididymal congestion, development of sperm antibodies, and development of chronic pain estimated between 1-5%. The procedure was reviewed in detail. Anatomical diagrams of the male genitalia were used to explain the location of the vas deferens. The vas deferens will be transected, the proximal end will be cauterized, a metal clip would be applied to separate the 2 vas deferens ends. It was explained the procedure will be done in the office and takes approximately 10-15 minutes. Less common problems that arise with vasectomy include hematoma, bleeding, allergic reaction to anesthetic, epididymal infection, epididymal congestion, scrotal discomfort, spermatic leak, spermatic granuloma and the possibility of antisperm antibodies. He understands these risks and wishes to proceed. Consent was signed at the office today. He also understands that it takes 12 weeks for sperm to fully clear the system. He will need to provide a semen sample at 12 weeks and if this is not clear a 2nd sample at 16 weeks. Medical clearance to stop using protection will only be provided if he satisfies published criteria for sperm clearance. 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 Cognitive needs: No Hearing needs: No Vision needs: Yes Review of Systems Const All systems reviewed & are unremarkable except as noted in HPI and below Physical Exam Const General: cooperative, healthy appearing, comfortable, no acute distress, well developed, alert and awake Orientation/consciousness: patient oriented x3 Limitations: no limitations HEENT Head: Yes normal to inspection, Yes normocephalic and Yes atraumatic Ears: hearing grossly normal bilaterally Eyes General: appearance normal, both eyes and all related structures Neck Neck: Yes normal visual inspection and Yes trachea midline Chest Chest palpation & inspection: normal inspection of the chest Resp Effort & Inspection: normal respiratory effort and able to speak in complete sentences Cardio Rate: regular rate GI Inspection: Yes normal to inspection General: Yes no CVA tenderness Back/Spine/Pelvis Back: no CVA tenderness Skin General skin exam: no rashes or lesions noted Neuro General: patient oriented x3 Extrem General: Yes normal to inspection Psych Appearance: grossly normal and well kempt Mental Status: mental status grossly normal Speech and movement: Normal speech and movement present and Clear speech present Affect: normal affect Attitude: cooperative Thought process: Normal thought process present Thought content: Normal thought content present Insight: Fair insight present (Psych) Judgement: Fair judgement present (Psych) Assessment & Plan Assessment & Plan (1) Anxiety about health: Code(s): R45.89 - Other symptoms and signs involving emotional state Category: Medical (2) Vasectomy evaluation: Code(s): Z30. - Encounter for other general counseling and advice on contraception Category: Medical Plan In office vasectomy was discussed in detail; risks and benefits as noted above. All questions were answered. Consent was obtained. We discussed semen analysis in office verses fellows kit; information provided. Patient would like to call office when ready to schedule We did discuss PRN medication; he will call when ready to schedule Follow-up per doctor's orders; or sooner with any issues, concerns, and or questions. Patient Instructions: The patient had an opportunity to ask questions regarding the treatment plan. All questions were answered. Physical exam, labs, and imaging were discussed and reviewed in detail. As well as risks, benefits, and discussion of treatment choices. No major barriers to understanding were identified. The patient expressed understanding and agreement with the above treatment plan. The patient was made aware they should contact our office by phone for worsening of their current condition, the appearance of new symptoms, or with any questions or concerns. Compliance is encouraged with any medications and follow up testing that is ordered. It is a privilege to be allowed the opportunity to participate in? your urological care.? Again, if you have any questions or concerns If you have any questions or concerns please do not hesitate to contact me. The office is [phone]. This note is constructed using voice recognition software. While every effort has been made to ensure accuracy lumber sorter machine errors may have been included. Yours sincerely, DIDI Rey Coding Level of Care Code New Pt Level 3 (72184) Diagnoses Anxiety about health R45.89 Vasectomy evaluation Z30.09
== END 2025-07-08 10:33 | disposition home or self-care (01) ==
LOC: HO.HUSH 09:53
PROVIDERS: PCP Internal Medicine; Visit Provider Nurse Practitioner Family
DX: R45.89 Other symptoms and signs involving emotional state (principal); Z30.09 Encounter for other general counseling and advice on contraception
CPT/HCPCS: 99203

== ENCOUNTER → 2025-07-08 09:53 | Outpatient (BNVA) | payer OTHER, SELFPAY | PROVIDERS: PCP Internal Medicine; Visit Provider Nurse Practitioner Family | DX: R45.89 Other symptoms and signs involving emotional state (principal); Z30.09 Encounter for other general counseling and advice on contraception | CPT/HCPCS: 99202 ==